=== PATIENT | male | born 1960 | race Caucasian/White ===

== ENCOUNTER 2019-06-08 08:34 | Emergency (ER) | payer SELFPAY ==
[~2019-06-08] VITALS: Ht 188 cm; Wt 113.4 kg
--- NOTE | 2019-06-08 08:53 | PHYS DOC ---
Adult General Chief Complaint Chief Complaint: RAPID HEART RATE HPI HPI 58-year-old male presents to the emergency department via EMS with complaints of abnormal heart rhythm. Patient has a history of atrial flutter, has been on bistolic. Patient states that this morning he woke felt his heart and an ab normal rhythm, had some dizziness. Denies any chest pain, shortness of breath, nausea, vomiting. EMS was called, and route patient had spontaneous conversion from a atrial flutter with RVR. Patient denies any abdominal pain, headache, visual changes at this time. Review of Systems Review of Systems Constitutional: Denies fever or chills [] Respiratory: Denies cough or shortness of breath [] Cardiovascular: No additional information not addressed in HPI [] GI: Denies abdominal pain, nausea, vomiting, bloody stools or diarrhea [] Musculoskeletal: Denies back pain or joint pain [] Integument: Denies rash or skin lesions [] Neurologic: Denies headache, focal weakness or sensory changes [] All other systems were reviewed and found to be within normal limits, except as documented in this note. Current Medications Current Medications Current Medications Medications (Trade) Dose Ordered Sig/Mert Start Time Stop Time Status Last Admin Dose Admin Metoprolol Tartrate (Lopressor) 25 mg 1X ONCE 06/08/19 09:00 06/08/19 09:01 DC 06/08/19 09:03 25 MG Allergies Allergies Allergies Coded Allergies Type Severity Reaction Last Updated Verified No Known Drug Allergies 06/08/19 No Physical Exam Physical Exam Constitutional: Well developed, well nourished, no acute distress, non-toxic appearance. [] HENT: Normocephalic, atraumatic, bilateral external ears normal, oropharynx moist, no oral exudates, nose normal. [] Eyes: PERRLA, EOMI, conjunctiva normal, no discharge. [] Neck: Normal range of motion, no tenderness, supple, no stridor. [] Cardiovascular:Heart rate regular rhythm, no murmur [] Lungs & Thorax: Bilateral breath sounds clear to auscultation [] Abdomen: Bowel sounds normal, soft, no tenderness, no masses, no pulsatile masses. [] Skin: Warm, dry, no erythema, no rash. [] Back: No tenderness, no CVA tenderness. [] Extremities: No tenderness, no cyanosis, no clubbing, ROM intact, no edema. [] Neurologic: Alert and oriented X 3, normal motor function, normal sensory function, no focal deficits noted. [] Psychologic: Affect normal, judgement normal, mood normal. [] Current Patient Data Vital Signs Vital Signs Date Time Temp Pulse Resp B/P (MAP) Pulse Ox O2 Delivery O2 Flow Rate FiO2 06/08/19 09:03 78 213/108 06/08/19 08:35 98.4 22 95 Room Air 98.4 EKG EKG EKG reviewed 0 849, nonurgent EKG. Sinus rhythm. No evidence of ST elevation [place].[] Interpretation Time: 0 849 Radiology/Procedures Radiology/Procedures [] Course & Med Decision Making Course & Med Decision Making Pertinent Labs and Imaging studies reviewed. (See chart for details) []58-year-old male presents to the emergency department via EMS with complaints of abnormal heart rhythm. Patient has a history of atrial flutter, has been on bistolic. Patient states that this morning he woke felt his heart and an abnormal rhythm, had some dizziness. Denies any chest pain, shortness of breath, nausea, vomiting. EMS was called, and route patient had spontaneous conversion from a atrial flutter with RVR. Patient denies any abdominal pain, headache, vi sual changes at this time. EKG reviewed with NSR at this time Metoprolol 25mg po x 1 given in ER, patient's BP elevated Discussed labs and further evaluation with patient however he declines labs at this time Discussed dc plans - heart rate remains in NSR 80's Dragon Disclaimer Dragon Disclaimer This electronic medical record was generated, in whole or in part, using a voice recognition dictation system. Departure Departure Impression: Primary Impression: Atrial flutter with rapid ventricular response Disposition: HOME, SELF-CARE Condition: STABLE Patient Instructions: Atrial Flutter Additional Instructions: Recommend follow up with PCP 3 - 5 days Return to the ER with worsening symptoms, intractable pain, fever, altered mental status Tylenol/Motrin as needed for pain PARIS LATHAM MD Jun 08, 2019 08:53
[2019-06-08] MEDS ORDERED: METOPROLOL TART IMMED RELEASE 25 MG TABLET. PO ONE (09:00)
[2019-06-08 09:03] VITALS: BP 213/108
--- NOTE | 2019-06-11 06:54 | EKG ---
[facility] [address] [place] [address] Test Date: 2019-06-08 Test Time: 08:44:51 Pat Name: BHAVANI BOONE Department: Room: Gender: M Safety Associate: : [id number] Requested By: PARIS LATHAM Order Number: [id number] Reading MD: Measurements Intervals [place] Rate: 77 P: 54 VT: 180 QRS: 47 QRSD: 94 T: 31 QT: 350 QTc: 402 Interpretive Statements SINUS RHYTHM T ABNORMALITY IN INFERIOR LEADS NON SPECIFIC ST-T ABNORMALITY (ELEVATION) ABNORMAL ECG No previous ECG available for comparison
== END 2019-06-08 09:37 | disposition home or self-care (01) ==
LOC: ER 08:34
DX: I48.92 Unspecified atrial flutter (principal)
CPT/HCPCS: 93005; 99283-25; 99285-25